=== PATIENT | male | born 1945 | race Caucasian/White ===

== ENCOUNTER 2017-07-28 19:29 | Observation (INO) | payer MEDICARE, OTHER ==
[~2017-07-28 19:29] MED LIST: ISOVUE-370 76%-LOCM 1 ML ONE
[2017-07-28 20:09] LABS: #Lymphocytes 1.3 thou/uL (1.20-3.40); #Monocytes 0.4 thou/uL (0.11-0.59); #Neutrophils 5.2 thou/uL (1.40-6.50); %Basophils 0.2 % (0.0-1.0); %Eosinophils 0.6 % (0.0-10.0); %Lymphocytes 18.6 % (21.0-51.0); %Neutrophils 74.6 % (42.0-75.0); Hemoglobin 14.2 g/dL (14.0-18.0); Mean Corpuscular HGB CONC 34.3 g/dL (32.0-36.0); Mean Corpuscular Volume 96.4 fl (80.0-94.0); Platelet Count 190 thou/uL (130-400); RBC Distribution Width 11.2 % (11.5-14.5)
[2017-07-28 20:30] LABS: ALT (SGPT) 34 U/L (8-55); AST (SGOT) 38 U/L (5-34); Albumin 4.1 g/dL (3.4-4.8); Alkaline Phosphatase 46 U/L (40-150); Anion Gap 12 mmol/L (10-20); BUN (Urea Nitrogen) 24 mg/dL (8.4-25.7); Bilirubin, Total 0.5 mg/dL (0.2-1.2); CK (CPK) 230 U/L (30-200); Calc. Creatinine Clearance 0 mL/min (70-130); Calcium 8.8 mg/dL (7.8-10.44); Carbon Dioxide 28 mmol/L (23-31); Chloride 99 mmol/L (98-107); Estimated GFR-MDRD 68; Globulin 2.3 g/dL (2.4-3.5); Glucose 129 mg/dL (83-110); Lipase 80 U/L (8-78); Magnesium 1.9 mg/dL (1.6-2.6); Protein, Total 6.4 g/dL (5.8-8.1); Sodium 135 mmol/L (136-145)
[2017-07-28 20:34] LABS: CKMB 3.3 ng/mL (0-6.6); Troponin I Less than 0.010 ng/mL (< 0.028)
--- NOTE | 2017-07-28 20:59 | RAD ---
PA AND LATERAL OF THE CHEST: 07/28/17 INDICATION: Syncopal episode. COMPARISON: None. IMPRESSION: No acute cardiopulmonary abnormality. COMMENTS: Lungs are clear. There are vascular calcifications involving the aortic arch. Heart size is normal. N o pleural effusion or pneumothorax is evident. There is postsurgical change from a right rotator cuff repair. POS: [facility]
[2017-07-28] MEDS ORDERED: Sodium Chloride 0.9% 1,000 ML IV SCH (21:45)
--- NOTE | 2017-07-28 23:15 | CT ---
CTA OF THE HEAD WITH AND WITHOUT IV CONTRAST CTA OF THE NECK WITH IV CONTRAST. 07/28/17 INDICATION: 72-year-old male with syncopal episode and nausea. FINDINGS: NONCONTRAST CT OF THE BRAIN: There is moderate chronic small vessel white matter ischemic change. Septum pellucidum and third vent ricle are midline. No acute infarct, hemorrhage or hydrocephalus present. Mastoid air cells are clear . The paranasal sinuses are clear. CTA OF THE HEAD WITH IV CONTRAST: No hemodynamically significant stenosis, occlusion, or aneurysmal formation is demonstrated. There is origin of the right LOOM TECHNICIAN. The client relations associate are patent. The MCAs and ACAs are patent. The right vertebra l artery is diminutive and terminates at the right PICA. The left vertebral artery is fully patent. CTA OF THE NECK: There are mild calcifications involving the carotid bulbs and proximal internal carotic arteries bila terally. No hemodynamically significant stenosis, occlusion or aneurysmal formation is demonstrated. The subclavian arteries are patent. The common carotid arteries are patent. The thyroid gland is norm al appearing. Aerodigestive tract is normal appearing. The parotid and submandibular glands appear wi thin normal limits. Dental amalgam slightly limits visualization of the oral cavity. The [place] lense s have been replaced. IMPRESSION: 1. No acute intracranial abnormality. 2. Moderate chronic small vessel white matter ischemic change. 3. No hemodynamically significant stenosis, occlusion or aneurysmal formation seen involving the head or neck. POS: [facility]
[2017-07-28 23:35] LABS: Troponin I Less than 0.010 ng/mL (< 0.028)
[2017-07-29 01:21] VITALS: BMI 25.2
[2017-07-29 02:27] LABS: Troponin I Less than 0.010 ng/mL (< 0.028)
[2017-07-29 04:14] LABS: Bilirubin Negative (Negative); Blood, Urine Negative (Negative); Clarity CLEAR (Clear); Glucose, Urine (Dipstick) Negative (Negative); Leukocyte Negative (Negative); Nitrite Negative (Negative); Protein, Urine (Dipstick) Negative (Neg-Trace); Specific Gravity, Urine 1.017 (1.002-1.036); Urobilinogen 0.2 mg/dL (0.2-1.0); pH, Urine 6.5 (5.0-9.0)
--- NOTE | 2017-07-29 08:46 | PDOC.PN ---
- Subjective Encounter Start Date: 07/29/17 Encounter Start Time: 08:00 Patient seen and examined. No new complaints. No overnight events - Objective MAR Reviewed: Yes Vital Signs & Weight: Vital Signs (12 hours) Temp Pulse Resp BP BP BP BP 07/29/17 07:13 98.1 F 74 16 164/75 H 162/78 H 188/90 H 07/29/17 05:50 75 163/75 H 07/29/17 03:40 98.5 F 66 16 187/81 H 07/29/17 00:24 98.3 F 77 18 169/79 H 165/81 H 193/93 H Pulse Ox 07/29/17 07:13 95 07/29/17 05:50 07/29/17 03:40 95 07/29/17 00:24 94 L Weight Weight 166 lb 1.6 oz I&O: 07/28/17 07/29/17 07/30/17 06:59 06:59 06:59 Intake Total 629 Output Total 200 Balance 429 Result Diagrams: 07/28/17 20:00 07/28/17 20:00 Additional Labs: Laboratory Tests 07/28/17 07/28/17 07/28/17 20:00 20:00 20:04 Creatine Kinase 230 H Troponin I Less than 0.010 B-Natriuretic Peptide TSH 3rd Generation 1.6949 07/28/17 07/28/17 07/29/17 20:04 23:00 01:57 Creatine Kinase Troponin I Less than 0.010 Less than 0.010 B-Natriuretic Peptide 28.8 TSH 3rd Generation Radiology Reviewed by me: Yes (CXR- nega, CTA head/neck - negative) EKG Reviewed by me: Yes (SR, LAD) Phys Exam - Physical Examination Constitutional: NAD HEENT: PERRLA, moist MMs, sclera anicteric Neck: no nodes, no JVD, supple, full ROM Respiratory: no wheezing, no rales, no rhonchi, clear to auscultation bilateral Cardiovascular: RRR, no rub 2/6 SM at mitral area, no heaves/pulsations Gastrointestinal: soft, non-tender, no distention, positive bowel sounds Musculoskeletal: no edema, pulses present Neurological: non-focal, normal sensation, moves all 4 limbs Lymphatic: no nodes (neck) Psychiatric: normal affect, A&O x 3 Skin: no rash Dx/Plan - Plan DVT proph w/SCDs * Dictated. Review of Systems - Review of Systems Constitutional: negative: fever, chills, sweats, weakness, malaise, other Eyes: negative: Pain, Vision Change, Conjunctivae Inflammation, Eyelid Inflammation, Redness ENT: negative: Ear Pain, Ear Discharge, Nose Pain, Nose Discharge, Nose Congestion, Mouth Pain, Mouth Swelling, Throat Pain, Throat Swelling, Other Respiratory: negative: Cough, Dry, Shortness of Breath, Hemoptysis, SOB with Excertion, Pleuritic Pain, Sputum, Wheezing Cardiovascular: negative: chest pain, palpitations, orthopnea, paroxysmal nocturnal dyspnea, edema, light headedness Gastrointestinal: Nausea (earlier - resolved). negative: Vomiting, Abdominal Pain, Diarrhea, Constipation, Melena, Hematochezia Genitourinary: negative: Dysuria, Frequency, Incontinence, Hematuria, Retention Musculoskeletal: negative: Neck Pain, Shoulder Pain, Arm Pain, Back Pain, Hand Pain, Leg Pain, Foot Pain Skin: negative: Rash, Lesions, Bradly, Bruising Neurological: negative: Weakness, Numbness, Incoordination, Change in Speech, Confusion, Seizures - Medications/Allergies Allergies/Adverse Reactions: Allergies Allergy/AdvReac Type Severity Reaction Status Date / Time No Known Drug Allergies Allergy Verified 07/29/17 01:23 Medications: Current Medications Sodium Chloride (Normal Saline 0.9%) 1,000 mls @ 75 mls/hr IV .[id number] [facility] Last Admin: 07/29/17 01:07 Dose: 1,000 mls
[2017-07-29] MEDS ORDERED: Nitroglycerin 0.4 MG TAB (25 Tab Bottle) PO PRN (08:48)
[2017-07-29] MEDS ORDERED: Ondansetron HCl/PF 4 MG/2 ML Vial IVP PRN (08:48)
[2017-07-29] MEDS ORDERED: Ondansetron ODT 4 MG TAB PO PRN (08:48)
[2017-07-29] MEDS ORDERED: Zolpidem Tartrate 5 MG TAB PO PRN (08:52)
[2017-07-29] MEDS ORDERED: ALPRAZolam 0.5 MG TAB PO PRN (08:52)
[2017-07-29] MEDS ORDERED: hydrALAZINE 20 MG/ML VIAL SLOW IVP PRN (09:00)
--- NOTE | 2017-07-29 09:06 | HP ---
DATE OF ADMISSION: 07/28/2017 The patient is left over admission from last night. REASON FOR CHIEF COMPLAINT: Syncope. PRIMARY CARE PHYSICIAN: Dr. Pawel Gaines. PRIMARY MANAGER RESEARCH DEVELOPMENT: None. HISTORY OF PRESENT ILLNESS: Patient is a 72-year-old male with hypertension, hyperlipidemia, and family history of heart disease who presented to the hospital with above complaints. The patient was at [facility] yesterday. He had a syncopal episode while he was drinking beer and eating turkey leg. He had sudden onset of nausea with increased salivation followed by passing out. He lost consciousness for approximately 45 seconds or so. He was back to baseline. A implementation analyst was at the scene and stated that he was not breathing and had no pulse. So he started chest compressions. He denies any tongue biting, incontinence, double vision, blurring of vision, facial asymmetry or chest pain. He has some discomfort over his occipital region from the fall. He had similar episode approximately 15 years ago when he had influenza. PAST MEDICAL HISTORY: 1. Hypertension 2. Hyperlipidemia. 3. Depression. 4. Gout. 5. History of renal calculi. 6. Depression. PAST SURGICAL HISTORY: 1. Right rotator cuff surgery. 2. [place] tooth removal. ALLERGIES: No known drug allergies. HOME MEDICATIONS: Xanax as needed, allopurinol 100 mg daily, Lipitor 20 mg daily, aspirin 81 mg daily, Celexa 20 mg daily, Seroquel 12.5 mg at bedtime, thiamine daily, and other p.r.n. medications. SOCIAL HISTORY: Patient currently lives at home. He quit smoking in 1976. He was not a heavy smoker. He drinks 2-3 beers and wine on a daily basis. No drug use. He makes his own decisions with the help of his family. He is FULL CODE. FAMILY HISTORY: Father of DE at the age of 65. One brother with cancer. Details unavailable. Another brother of complications of alcoholism. REVIEW OF SYSTEMS: Please refer to my progress note. PHYSICAL EXAMINATION: Please refer to my progress note. LABORATORY FINDINGS: Please refer to my progress note. IMPRESSION: 1. Syncope of unclear etiology, probably cardiogenic. Other possibilities include vasovagal syncope. 2. Family history of heart disease. 3. Hypertension. 4. Hyperlipidemia. 5. Depression without any suicidal ideation. 6. Former smoker. 7. Chronic kidney disease stage 2. 8. Daily alcohol use. 9. Slightly elevated CK, probably secondary to fall. PLAN: The patient will be monitored in the telemetry unit. We will continue low dose aspirin. Echocardiogram will be obtained. Due to intermediate probability for coronary artery disease, a stress test would be beneficial since he never had a cardiac workup in the past. We will also consult Cardiology for possible need for an event monitor. His serial troponins are negative. The patient will be kept n.p.o. We will continue neuro checks. Orthostatic vitals will be obtained. We will set stress test as outpatient Plan of care was discussed with the patient in detail. He stated understanding. GWEN
[2017-07-29] MEDS: Allopurinol 100 MG TAB PO SCH (09:14)
[2017-07-29] MEDS: Aspirin 81 mg Enteric Coated Tablet PO SCH (09:14)
[2017-07-29] MEDS ORDERED: Amlodipine 5 MG TAB PO SCH (10:30)
[2017-07-29] MEDS ORDERED: Folic Acid 1 MG TAB PO SCH ×2 (10:30→10:45)
[2017-07-29] MEDS: Carvedilol 3.125 MG TAB PO SCH (17:40)
--- NOTE | 2017-07-29 19:08 | CON ---
DATE OF CONSULTATION: 07/29/2017 HISTORY OF PRESENT ILLNESS: The patient is a pleasant 72-year-old gentleman who presented after losing consciousness. The patient states that approximately 20 years ago he had the flu. He had an episode there where he suddenly passed out. The patient was doing well until the day of admission. The patient had been out in the sun for a long period of time. He has had several drinks. He became nauseated and then suddenly lost consciousness. The patient denied having any chest discomfort or palpitations. The patient is very physically active. He denies having any discomfort with exertion. PAST MEDICAL HISTORY: 1. Hypercholesterolemia. 2. Gout. 3. Depression. PAST SURGICAL HISTORY: Rotator cuff surgery and wisdom tooth removed. MEDICATIONS ON ADMISSION: Celexa 20 daily, Seroquel 12.5 daily, Lipitor 20 at bedtime, allopurinol 100 daily, aspirin 81 daily. ALLERGIES: No known drug allergies. FAMILY HISTORY: Strong family history of coronary artery disease. SOCIAL HISTORY: Nonsmoker. He drinks several alcoholic beverages daily. REVIEW OF SYSTEMS: A 10-point system unremarkable. No history of bright blood per rectum, hematuria. PHYSICAL EXAMINATION: GENERAL: This is a well-developed gentleman, in no acute distress. VITAL SIGNS: Blood pressure was 188/90 when he was lying supine, 164/75 sitting and 162/78 standing. His heart rate was 74 and regular. NECK: Showed no jugular venous distention, no carotid bruits. LUNGS: Clear to auscultation. HEART: Regular rate and rhythm, normal S1, S2, no murmurs. ABDOMEN: Nondistended. EXTREMITIES: Showed no edema. SKIN: Warm and dry. NEUROLOGIC: Nonfocal. VASCULAR: Radial pulses are 2+. LABORATORY DATA: White blood cell count 7.0, hemoglobin 14.2, hematocrit of 41.2 and his platelets are 190. Sodium was 135, potassium 4.0, chloride 99, bicarbonate 20, BUN 24, creatinine is 1.07, troponin less than 0.01. His EKG revealed him to have normal sinus rhythm with first degree AV block. IMPRESSION AND PLAN: 1. Syncope, probably orthostatic or vasovagal. 2. Hypertension. 3. Anxiety. 4. Dyslipidemia. This gentleman had a syncopal episode. He had a significant heat exposure and had been drinking alcohol. From a cardiac standpoint, he will undergo an echocardiogram to evaluate his left ventricular function. We will check orthostatic blood pressures. We will follow this patient with you. Further recommendations to follow. MTDD
[2017-07-29] MEDS ORDERED: Lorazepam 0.5 MG TAB PO PRN (19:18)
[2017-07-29] MEDS ORDERED: Citalopram 20 MG TAB PO SCH (21:00)
[2017-07-30] MEDS ORDERED: Multivit, Therapeutic 1 TAB PO SCH (09:00)
[2017-07-30] MEDS ORDERED: Folic Acid 1 MG TAB PO SCH (09:00)
[2017-07-30] MEDS ORDERED: Amlodipine 5 MG TAB PO SCH (09:00)
[2017-07-30] MEDS: Allopurinol 100 MG TAB PO SCH (10:37)
[2017-07-30] MEDS: Carvedilol 3.125 MG TAB PO SCH (10:37)
[2017-07-30 11:53] VITALS: BP 133/76; TEMP 97.4
[2017-07-30] MEDS ORDERED: Lidocaine 1% w/Epinephrine 1:100K 30 ML VIAL ONE (12:19)
[2017-07-30] MEDS: Aspirin 81 mg Enteric Coated Tablet PO SCH (13:13)
--- NOTE | 2017-07-30 14:27 | OP ---
DATE OF SERVICE: 07/30/2017 PROCEDURE PERFORMED: Insertion of permanent media monitor. INDICATION FOR DEVICE: Syncope. COMPLICATIONS: None. MODEL NUMBER: ARAyden [id number]. Serial number: [id number]. DESCRIPTION OF PROCEDURE: The patient was taken to the procedural area, prepped and draped in the [facility] sterile fashion. Lidocaine was utilized for local anesthesia. An incision was made at the fourt h intercostal space in left pectoral region utilizing a skin puncture tool. The insertable cardiac m onitor LINQ was inserted through the puncture site with the LINQ insertion tool. Dermabond was then applied to the site in the usual sterile fashion. He will follow up in the LINQ clinic with Dr. Lucas.
--- NOTE | 2017-07-31 11:26 | DIS ---
DATE OF DISCHARGE: 07/30/2017 DISCHARGE DISPOSITION: Home. FOLLOWUP: 1. Follow up with primary care physician, Dr. Pawel Gaines in 1 week. 2. Follow up with Cardiology, Dr. Clyde Lucas in 2 weeks. 3. Fall precautions with 24-hour supervision for now recommended. ALLERGIES: No known drug allergies. No driving until cleared by MMarisa. DISCHARGE MEDICATIONS: Amlodipine 5 mg daily, multivitamin 1 tablet daily. Other home medications w ere resumed. INPATIENT NUTRITION AIDE: Cardiology, Dr. Clyde Lucas. DIAGNOSTIC TESTS: 1. BUN 24, creatinine 1.07. 2. Troponins were normal. 3. TSH 1.6. 4. Echocardiogram showed left ventricular ejection fraction of 55%-60% with mild aortic regurgitatio n, mild mitral regurgitation, mild tricuspid regurgitation. 5. Chest x-ray on admission was negative. 6. CT angiogram of the head and neck were negative for significant stenosis. BRIEF HOSPITAL COURSE: The patient is a 72-year-old white male with hypertension, hyperlipidemia, an d family history of heart disease who presented to the hospital with syncopal episode. Please refer to the history and physical dated 07/28/2017 for further details. The patient was admitted to the hospital with a diagnosis of syncope of unclear etiology, suspected c ardiogenic. Patient was evaluated by Cardiology, Dr. Clyde Lucas. He underwent a loop recorder pl acement on the day of discharge. Due to elevated blood pressure, he has been started on amlodipine. He has been counseled on blood pressure. He was also advised to monitor his blood pressure on a stephanie ly basis. He will benefit from a stress test as outpatient. He has been cleared by Cardiology for d ischarge. FINAL DIAGNOSES: 1. Syncope of unclear etiology. The patient underwent loop recorder placement. 2. Family history of heart disease. 3. Hypertension. 4. Hyperlipidemia. 5. Depression without any suicidal ideation. 6. Former smoker. 7. Chronic kidney disease stage 2. 8. Daily alcohol use. Patient was counseled. 9. Slightly elevated CK (230 on admission, probably secondary to fall). Plan of care was discussed with the patient in detail, he stated understanding.
--- NOTE | 2017-07-31 11:54 | CT ---
CTA OF THE HEAD WITH AND WITHOUT IV CONTRAST CTA OF THE NECK WITH IV CONTRAST. 07/28/17 INDICATION: 72-year-old male with syncopal episode and nausea. FINDINGS: NONCONTRAST CT OF THE BRAIN: There is moderate chronic small vessel white matter ischemic change. Septum pellucidum and third vent ricle are midline. No acute infarct, hemorrhage or hydrocephalus present. Mastoid air cells are clear . The paranasal sinuses are clear. CTA OF THE HEAD WITH IV CONTRAST: No hemodynamically significant stenosis, occlusion, or aneurysmal formation is demonstrated. There is origin of the right REJECTED ITEMS CLERK. The paragliding instructor are patent. The MCAs and ACAs are patent. The right vertebra l artery is diminutive and terminates at the right PICA. The left vertebral artery is fully patent. CTA OF THE NECK: There are mild calcifications involving the carotid bulbs and proximal internal carotic arteries bila terally. No hemodynamically significant stenosis, occlusion or aneurysmal formation is demonstrated. The subclavian arteries are patent. The common carotid arteries are patent. The thyroid gland is norm al appearing. Aerodigestive tract is normal appearing. The parotid and submandibular glands appear wi thin normal limits. Dental amalgam slightly limits visualization of the oral cavity. The [place] lense s have been replaced. IMPRESSION: 1. No acute intracranial abnormality. 2. Moderate chronic small vessel white matter ischemic change. No hemodynamically significant stenosis, occlusion or aneurysmal formation seen involving the head or neck.
== END 2017-07-30 13:33 | disposition home or self-care (01) ==
LOC: ERS 19:29 → 2SW 21:44
PROVIDERS: ADMIT Internal Medicine; ATTEND Internal Medicine
PROC: 0JH632Z Insertion of Monitoring Device into Chest Subcutaneous Tissue and Fascia, Percutaneous Approach (ICD-10-PCS; principal; 2017-07-30)
DX: R55 Syncope and collapse (principal); E78.5 Hyperlipidemia, unspecified; F32.9 Major depressive disorder, single episode, unspecified; I12.9 Hypertensive chronic kidney disease with stage 1 through stage 4 chronic kidney disease, or unspecified chronic kidney disease; N18.2 Chronic kidney disease, stage 2 (mild); E78.00 Pure hypercholesterolemia, unspecified; M10.9 Gout, unspecified; Z87.891 Personal history of nicotine dependence; Z79.82 Long term (current) use of aspirin; Z79.899 Other long term (current) drug therapy
CPT/HCPCS: 33282; 36415; 70496; 70498; 71046; 80053; 81003; 82553; 83690; 83735; 83880; 84443; 84484; 85025; 93005; 93306; 96360; 96361; A4216; C1764; G0378; J2001

== ENCOUNTER 2017-09-27 20:30 | Outpatient (CLI) | payer MEDICARE, OTHER | END 2017-09-27 20:31 | disposition home or self-care (01) | LOC: SLEEPLAB 20:30 | PROVIDERS: ATTEND Internal Medicine Cardiovascular Disease | DX: G47.33 Obstructive sleep apnea (adult) (pediatric) (principal); G47.00 Insomnia, unspecified; R53.83 Other fatigue; I10 Essential (primary) hypertension | CPT/HCPCS: 95811 ==